=== PATIENT | male | born 1965 | race Caucasian/White ===

== ENCOUNTER 2023-04-20 07:23 | Emergency (ER) | payer OTHER ==
[~2023-04-20] VITALS: Ht 188 cm; Wt 117.9 kg
[2023-04-20 07:51] VITALS: BP 147/82
[2023-04-20] MEDS ORDERED: IV NS 0.9% 1,000 ML BAG IV ONE (08:00)
[2023-04-20 08:38] LABS: BASOPHILS % (AUTO) 0.3 % (0.0-2.0); EOSINOPHILS # (AUTO) 0.1 K/uL (0.0-0.7); EOSINOPHILS % (AUTO) 0.8 % (0.0-6.0); HEMATOCRIT 43 % (39-51); HEMOGLOBIN 13.6 g/dL (13.5-17.5); LYMPHOCYTES # (AUTO) 1.4 K/uL (0.8-4.8); LYMPHOCYTES % (AUTO) 14.3 % (20.0-44.0); MEAN CORPUSCULAR HEMOGLOBIN 27 PG (26.0-33.0); MEAN CORPUSCULAR HGB CONC 32 g/dl (31.0-36.0); MEAN CORPUSCULAR VOLUME 85 fL (80-96); MONOCYTES # (AUTO) 0.6 K/uL (0.1-1.30); MONOCYTES % (AUTO) 5.7 % (2.0-12.0); NEUTROPHILS % (AUTO) 78.9 % (43.0-81.0); PLATELET COUNT (AUTO) 170 K/uL (150-450); RED BLOOD CELL COUNT(AUTO) 5.03 MIL/uL (4.5-6.0); RED CELL DISTRIBUTION WIDTH 16.4 % (11.5-15.0); WHITE BLOOD COUNT (AUTO) 10.2 K/uL (4.3-11.0)
[2023-04-20 08:48] LABS: SERUM AMMONIA 20 umol/L (11-32)
[2023-04-20 08:51] LABS: CALCIUM, SERUM 8.6 mg/dL (8.5-10.1); CARBON DIOXIDE 26 mmol/L (21-32); CHLORIDE 104 mmol/L (98-107); CREATININE 1.1 mg/dL (0.6-1.3); GLUCOSE 113 mg/dL (74-106); POTASSIUM 4.3 mmol/L (3.5-5.1); SODIUM SERUM 137 mmol/L (136-145); UREA NITROGEN, BLOOD 20 mg/dL (7-18)
[2023-04-20 08:56] LABS: ALANINE AMINOTRANSFERASE 34 U/L (12-78); ALBUMIN 3.4 g/dL (3.4-5.0); ALKALINE PHOSPHATASE 93 U/L (46-116); ASPARTATE AMINOTRANSFERASE 64 U/L (15-37); BILIRUBIN,DIRECT 0.1 mg/dL (0.0-0.2); BILIRUBIN,TOTAL 0.8 mg/dL (0.2-1.0); TOTAL PROTEIN, SERUM 8.5 g/dL (6.4-8.2)
[2023-04-20 08:57] LABS: SALICYLATE 1.8 mg/dL (2.8-20.0)
[2023-04-20 08:58] LABS: ACETAMINOPHEN <10 ug/ml (10-30); ALCOHOL, BLOOD < 3 mg/dL (0-10)
[2023-04-20 09:12] LABS: INR 1.13 (0.91-1.10); PARTIAL THROMBOPLASTIN TIME 31.2 SEC (24.3-34.3); PROTHROMBIN TIME 11.9 SECS (9.2-11.1)
[2023-04-20] MEDS ORDERED: IV NS 0.9% 1,000 ML IV ONE (11:00)
[2023-04-20 13:09] VITALS: TEMP 98; O2SAT 99
== END 2023-04-20 13:10 | disposition left against medical advice (07) ==
LOC: ER 07:23
DX: R53.83 Other fatigue (principal); M79.672 Pain in left foot; M79.671 Pain in right foot; R41.82 Altered mental status, unspecified; I10 Essential (primary) hypertension
CPT/HCPCS: 99284; 96360; 96361; 93005; 70450; 82140; 85025; 80048; 80076; 36415; 84484 ×2; 85730; 82962; 80143; 80320; J7030 ×3; G0480